=== PATIENT | female | born 2000 | race Two or more races ===

== ENCOUNTER 2019-01-12 09:51 | Emergency (ER) | payer OTHER ==
[2019-01-12 11:12] VITALS: BP 145/72
--- NOTE | 2019-01-12 11:17 | UC ---
Abdominal Pain Female HPI - History of Current Complaint Chief Complaint: UCAbdominalPain Stated Complaint: NAUSEA,VOMITING Time Seen by Provider: 01/12/19 10:32 Hx Obtained From: Patient, Family/[employer] Hx Last Menstrual Period: "like, uh, last week" ?: No Onset/Duration: Gradual Onset, Lasting Weeks - 2, Still Present Timing: Constant Severity Initially: Moderate Severity Currently: Moderate Pain Intensity: 8 Location: Diffuse Radiates: No Character: Cramping Aggravating Factor(s): Food Alleviating Factor(s): NPO Associated Signs and Symptoms: Positive: Decreased Appetite, Nausea, Vomiting, Diarrhea. Negative: Diaphoresis, Fever, Cough, Chest Pain, Dizzy, Back Pain, Constipation, Blood in Stool, Urinary Symptoms, Vaginal Bleeding, Vaginal Discharge Allergies/Adverse Reactions: Allergies Allergy/AdvReac Type Severity Reaction Status Date / Time No Known Allergies Allergy Verified 01/12/19 10:36 Home Medications: Home Medications Al Hydrox/Mg Hydrox/Simet LIQ* [Maalox Plus*] 30 ml PO Q4H PRN 01/12/19 [ History Confirmed 01/12/19] Esomeprazole(NF) [NEXium(NF)] 20 mg PO DAILY 01/12/19 [History Confirmed ] Meclizine TAB* [Antivert 12.5 TAB*] 12.5 mg PO ONCE 01/12/19 [History Confirmed 01/12/19] PMH/Surg Hx/FS Hx/Imm Hx - Additional Past Medical History Additional PMH: Anemia, H. Pylori - Surgical History Surgical History: None - Family History Known Family History: Negative: Diabetes - Social History Alcohol Use: None Substance Use Type: None Smoking Status (MU): Never Smoked Tobacco Review of Systems All Other Systems Reviewed And Are Negative: Yes Constitutional: Positive: Negative Skin: Positive: Negative Eyes: Positive: Negative ENT: Positive: Negative Cardiovascular: Positive: Negative Gastrointestinal: Positive: Abdominal Pain, Vomiting, Diarrhea, Nausea Genitourinary: Positive: Negative Is Patient Immunocompromised?: No Physical Exam Triage Information Reviewed: Yes Appearance: Well-Appearing, No Pain Distress, Obese Vital Signs: Initial Vital Signs Temp 98.6 F 01/12/19 10:33 Pulse 90 01/12/19 10:33 Resp 16 01/12/19 10:33 BP 145/72 01/12/19 10:33 Pulse Ox 100 01/12/19 10:33 Vital Signs Reviewed: Yes Eye Exam: Normal Eyes: Positive: Conjunctiva Clear ENT: Positive: Normal ENT inspection, Hearing grossly normal, Pharynx normal Neck exam: Normal Neck: Positive: Supple, Nontender, No Lymphadenopathy Respiratory: Positive: Chest non-tender, Lungs clear, Normal breath sounds Cardiovascular: Positive: RRR, No Murmur, Pulses Normal Abdomen Description: Positive: Soft, Other: - diffuse abdominal tenderness. Negative: CVA Tenderness (R), CVA Tenderness (L), Distended, Guarding Musculoskeletal: Positive: Strength Intact, ROM Intact, No Edema Neurological: Positive: Alert Skin Exam: Normal Abd Pain Female Course/Dx - Course Course Of Treatment: abdominal pain x 2 weeks pain is diffuse, 8 out of 10 , worse with eating , better with NPO nausea vomiting and diarrhea daily cannot keep anything down no urinary sx, no fever, no chills - Differential Dx/Diagnosis Provider Diagnosis: Gastroenteritis Discharge - Sign-Out/Discharge Documenting (check all that apply): Patient Departure All imaging exams completed and their final reports reviewed: No Studies - Discharge Plan Condition: Stable Disposition: HOME Prescriptions: Diphenoxylat/Atrop 2.5-0.025M* [Lomotil TAB*] 1 tab PO QID PRN #12 tab MDD 4 tabs per day PRN Reason: Diarrhea Ondansetron ODT TAB* [Zofran 4 MG Odt TAB*] 8 mg PO Q8H PRN #12 tab.odt PRN Reason: Nausea/Vomiting Patient Education Materials: Gastroenteritis (ED) Referrals: No Primary Care Phys,NOPCP [Primary Care Provider] - 3 Days Additional Instructions: will check stool culture - Billing Disposition and Condition Condition: STABLE Disposition: Home
== END 2019-01-12 11:26 | disposition home or self-care (01) ==
LOC: UCCORT 09:51
DX: K52.9 Noninfective gastroenteritis and colitis, unspecified (principal)
CPT/HCPCS: 99202; G0463